=== PATIENT | male | born 1945 | race Caucasian/White ===

== ENCOUNTER 2016-04-01 13:27 | Outpatient (CLI) | payer OTHER ==
--- NOTE | 2016-04-01 14:48 | DIAGNOSTIC IMAGING REPORT ---
PROCEDURE: CT SINUS/FACIAL BONES W/O CONT CLINICAL INDICATION: DEVIATED NASAL SEPTUM TECHNIQUE: Noncontrast axial CT images through the sinuses. Coronal and sagittal reformations were created. COMPARISON: 02/08/[address] FINDINGS: Frontal sinuses and their outflow tracts are normally aerated. Mild mucosal thickening of the upper ethmoid air cells without complete opacification. The sphenoid sinuses and outflow tracts are patent. There is focal rightward deviation of the posterior osseous nasal septum with a prominent spur. Paradoxical curvature of the anterior left middle nasal turbinate. Irregular contour and moderate diffuse enlargement of the inferior nasal turbinates bilaterally, left greater than right. Moderate mucosal thickening of the lateral nasal bland. Narrowing of both ostiomeatal units secondary to mucosal thickening. Maxillary sinuses are normally aerated. Anteriorly the nasal soft tissues appear moderately enlarged/congested. The visible intracranial, extracranial, and neck soft tissues appear normal. The globes and orbital soft tissues are normal. IMPRESSION: 1. Mild nasal congestion with a focal rightward nasoseptal spur. 2. Narrowing of the ostiomeatal units bilaterally without maxillary sinus disease. 3. Irregular morphology of the nasal turbinates suggestive of allergic rhinitis. All CT scans at this facility use dose modulation, iterative reconstruction, and/or weight-based dosing when appropriate to reduce radiation dose to as low as reasonably achievable.
== END 2016-04-01 23:00 ==
LOC: CT SRH 13:27
DX: J34.89 Other specified disorders of nose and nasal sinuses (principal); J34.2 Deviated nasal septum